=== PATIENT | female | born 1985 | race Two or more races ===

== ENCOUNTER 2018-05-13 20:59 | Emergency (ER) | payer OTHER ==
[~2018-05-13] VITALS: Ht 165.1 cm; Wt 63.0 kg
[2018-05-13 21:02] VITALS: BP 127/67
== END 2018-05-13 22:06 ==
LOC: ER 21:00
DX: S51.812A Laceration without foreign body of left forearm, initial encounter (principal); W25.XXXA Contact with sharp glass, initial encounter; Y93.89 Activity, other specified; Y92.89 Other specified places as the place of occurrence of the external cause; Y99.9 Unspecified external cause status
CPT/HCPCS: 99283